=== PATIENT | male | born 1995 | race African-American/Black ===

== ENCOUNTER 2024-03-05 23:57 | Inpatient (IN) | payer OTHER ==
[~2024-03-05] VITALS: Ht 175.3 cm; Wt 70.4 kg
[2024-03-06 00:38] LABS: HEMATOCRIT 41.5 % (42.0-52.0); HEMOGLOBIN 13.9 g/dl (13.5-17.5); MEAN CORPUSCULAR HGB CONC 33.5 g/dl (32.0-36.5); MEAN CORPUSCULAR VOLUME 86.6 fl (80.0-96.0); PLATELET COUNT, AUTOMATED 229 10^3/uL (150-450); RED BLOOD COUNT 4.79 10^6/uL (4.30-6.10); WHITE BLOOD COUNT 11.1 10^3/uL (4.0-10.0)
[2024-03-06 01:01] LABS: ETHYL ALCOHOL (ETHANOL) < 0.003 % (0.000-0.010)
[2024-03-06 01:03] LABS: SALICYLATE LEVEL < 3.0 MG/DL (<30)
[2024-03-06 01:04] LABS: ALBUMIN 3.3 G/DL (3.2-5.2); ALKALINE PHOSPHATASE 93 U/L (46-116); ALT/SGPT 15 U/L (7.0-40); AST/SGOT 16 U/L (<34); BILIRUBIN,DIRECT 0.1 MG/DL (<0.4); BILIRUBIN,TOTAL 0.4 MG/DL (0.3-1.2); BLOOD UREA NITROGEN 18 MG/DL (9-23); CALCIUM LEVEL 8.9 MG/DL (8.5-10.1); CARBON DIOXIDE LEVEL 26 MMOL/L (20-31); CHLORIDE LEVEL 105 MMOL/L (98-107); CREATININE FOR GFR 1.17 MG/DL (0.70-1.30); GLOMERULAR FILTRATION RATE > 60.0 (>60); GLUCOSE, FASTING 107 MG/DL (60-100); POTASSIUM SERUM 3.8 MMOL/L (3.5-5.1); SODIUM LEVEL 139 MMOL/L (136-145); TOTAL PROTEIN 7.6 G/DL (5.7-8.2)
[2024-03-06 01:05] LABS: THYROID STIMULATING HORMONE 0.837 uIU/ML (0.55-4.78)
[2024-03-06 02:24] LABS: AMPHETAMINES LEVEL URINE NEGATIVE (NEGATIVE); BENZODIAZEPINES URINE NEGATIVE (NEGATIVE); CANNABINOIDS URINE NEGATIVE (NEGATIVE); PHENCYCLIDINE URINE NEGATIVE (NEGATIVE)
[2024-03-06 03:04] LABS: BARBITURATES URINE NEGATIVE (NEGATIVE); COCAINE METABOLITE URINE NEGATIVE (NEGATIVE); METHADONE URINE NEGATIVE (NEGATIVE); OPIATES URINE NEGATIVE (NEGATIVE)
[2024-03-06] MEDS ORDERED: HOME MED LIST COMPLETE! XX SCH (08:30)
[2024-03-06] MEDS: NICOTINE 21MG/24HR 1 EA TRANSDERMAL TD SCH (09:00)
[2024-03-06] MEDS ORDERED: OLANZapine ORAL DISINTEGRATING TAB 5MG PO PRN (14:05)
[2024-03-06] MEDS ORDERED: MOM 30ML SUSPENSION UDC PO PRN (14:05)
[2024-03-06] MEDS ORDERED: ACETAMINOPHEN TAB 650MG DOSE (2X325MG) PO PRN (14:05)
[2024-03-06] MEDS ORDERED: diphenhydrAMINE 25MG CAP PO PRN (14:05)
[2024-03-06] MEDS ORDERED: IBUPROFEN 400MG TAB PO PRN (14:05)
[2024-03-06] MEDS ORDERED: MAALOX 30 ML SUSP *UDC PO PRN (14:05)
[2024-03-06 18:44] VITALS: BP 115/54; TEMP 97.5; O2SAT 96
[2024-03-07 06:13] VITALS: BP 110/57; TEMP 98.6; O2SAT 98
[2024-03-07 17:03] VITALS: BP 122/73; TEMP 97.8; O2SAT 100
[2024-03-07] MEDS: traZODone 50 MG TAB PO PRN (20:41)
[2024-03-08 06:50] VITALS: BP 113/53; TEMP 97.5; O2SAT 100
[2024-03-08 15:48] VITALS: BP 132/67; TEMP 99.6; O2SAT 99
[2024-03-09 06:03] VITALS: BP 144/65; TEMP 98.3; O2SAT 100
== END 2024-03-09 10:38 | disposition home or self-care (01) | DRG 882 ==
LOC: M ED 23:57 → M ED INP 03-06 14:05 → M PSY 03-06 17:21
PROVIDERS: ADMIT Student in an Organized Health Care Education/Training Program; ATTEND Student in an Organized Health Care Education/Training Program
DX: F43.25 Adjustment disorder with mixed disturbance of emotions and conduct (principal); R45.851 Suicidal ideations; Z63.5 Disruption of family by separation and divorce; Z81.8 Family history of other mental and behavioral disorders